=== PATIENT | female | born 1950 | race Caucasian/White ===

== ENCOUNTER 2020-01-03 16:56 | Emergency (ER) | payer MEDICARE, BC, OTHER ==
--- NOTE | 2020-01-03 17:17 | EDM.PDOC ---
ED HPI GENERAL MEDICAL PROBLEM - General Chief Complaint: Gastrointestinal Problem Stated Complaint: nausea vomiting incoherent Time Seen by Provider: 01/03/20 17:02 Source of Information: Reports: Patient History Limitations: Reports: No Limitations - History of Present Illness INITIAL COMMENTS - FREE TEXT/NARRATIVE: 69F presents after episodes of dizziness and 1x N/V lasting roughly 45min. Patient notes that she was in normal state of health until she received some distressing new regarding the health of her sister in [place]. She was told her sister would likely tonight. Immediately after hearing this she became dizzy and felt like she was about to pass out. She felt nauseated and threw up. Symptoms are mostly resolved and lasted about 45-mn. Never had CP or SOB. - Related Data Allergies Allergy/AdvReac Type Severity Reaction Status Date / Time influenza virus vaccine, Allergy Anaphylactic Verified 01/03/20 17:06 specific Shock [influenza virus vacc,specific] Penicillins Allergy Hives Verified 01/03/20 17:06 Home Meds: Home Meds Aspirin 325 mg PO QAM 07/11/14 [History] Calcium Carb/Vit D3/Minerals [Calcium 600+D Plus Min] 1 each PO QAM 07/11/14 [History] Enalapril [Vasotec] 10 mg PO BID 07/11/14 [History] Glimepiride 4 mg PO BID 07/11/14 [History] Rosuvastatin [Crestor] 10 mg PO BEDTIME 07/11/14 [History] metFORMIN [Glucophage] 500 mg PO TID 07/11/14 [History] Chlorthalidone 25 mg PO DAILY 01/03/20 [History] Ketorolac [Toradol] 10 mg PO QID PRN 01/03/20 [History] Saxagliptin HCl [Onglyza] 5 mg PO DAILY 01/03/20 [History] carvediloL [Carvedilol] 25 mg PO BID 01/03/20 [History] ED ROS GENERAL - Review of Systems Review Of Systems: Comprehensive ROS is negative, except as noted in HPI. ED EXAM, GI/ABD - Physical Exam Exam: See Below Exam Limited By: No Limitations General Appearance: Alert, WD/WN, No Apparent Distress Head: Atraumatic, Normocephalic Respiratory/Chest: No Respiratory Distress, Lungs Clear, Normal Breath Sounds, No Accessory Muscle Use Cardiovascular: Normal Peripheral Pulses, Regular Rate, Rhythm GI/Abdominal Exam: Soft, Non-Tender Extremities: Normal Inspection Neurological: Alert, Oriented Psychiatric: Normal Affect, Normal Mood Skin Exam: Warm, Dry EKG INTERPRETATION EKG Date: 01/03/20 Time: 17:46 Rhythm: A-Fib Rate (Beats/Min): 74 [place]: Normal P-Wave: Absent QRS: Normal ST-T: Normal QT: Normal Comparison: NA - No Prior EKG Course - Vital Signs Last Recorded V/S: Last Vital Signs Temp 97.2 F 01/03/20 17:12 Pulse 72 01/03/20 17:12 Resp 17 01/03/20 17:12 BP 136/68 01/03/20 17:12 Pulse Ox 94 L 01/03/20 17:12 - Orders/Labs/Meds Orders: Active Orders 24 hr Category Date Time Status EKG Documentation Completion [RC] STAT Care 01/03/20 17:17 Active Labs: Laboratory Tests 01/03/20 01/03/20 Range/Units 17:38 17:38 WBC 7.07 (4.0-11.0) K/uL RBC 3.98 L (4.30-5.90) M/uL Hgb 11.1 L (12.0-16.0) g/dL Hct 35.1 L (36.0-46.0) % MCV 88.2 (80.0-98.0) fL MCH 27.9 (27.0-32.0) pg MCHC 31.6 (31.0-37.0) g/dL RDW Std Deviation 47.1 (28.0-62.0) fl RDW Coeff of Annita 15 (11.0-15.0) % Plt Count 197 (150-400) K/uL MPV 11.80 (7.40-12.00) fL Neut % (Auto) 67.3 (48.0-80.0) % Lymph % (Auto) 20.9 (16.0-40.0) % [place] % (Auto) 7.1 (0.0-15.0) % Eos % (Auto) 4.4 (0.0-7.0) % Baso % (Auto) 0.3 (0.0-1.5) % Neut # (Auto) 4.8 (1.4-5.7) K/uL Lymph # (Auto) 1.5 (0.6-2.4) K/uL [place] # (Auto) 0.5 (0.0-0.8) K/uL Eos # (Auto) 0.3 (0.0-0.7) K/uL Baso # (Auto) 0.0 (0.0-0.1) K/uL Nucleated RBC % 0.0 /100WBC Nucleated RBCs # 0 K/uL Sodium 136 (136-145) mmol/L Potassium 4.6 (3.5-5.1) mmol/L Chloride 103 (98-107) mmol/L Carbon Dioxide 24.6 (21.0-32.0) mmol/L BUN 26 H (7.0-18.0) mg/dL Creatinine 1.1 H (0.6-1.0) mg/dL Est Cr Clr Drug Dosing 35.16 mL/min Estimated GFR (MDRD) 49.4 ml/min Glucose 228 H (74-106) mg/dL Calcium 8.6 (8.5-10.1) mg/dL Total Bilirubin 0.8 (0.2-1.0) mg/dL AST 14 L (15-37) IU/L ALT 21 (14-63) IU/L Alkaline Phosphatase 52 (46-116) U/L Troponin I < 0.050 (0.000-0.056) ng/mL Total Protein 7.3 (6.4-8.2) g/dL Albumin 3.7 (3.4-5.0) g/dL Globulin 3.6 (2.6-4.0) g/dL Albumin/Globulin Ratio 1.0 (0.9-1.6) - Re-Assessments/Exams Free Text/Narrative Re-Assessment/Exam: 01/03/20 17:26 Will get basic labs and EKG. Likely stress reaction. If negative will d/c so patient can go see her sister. 01/03/20 18:21 Labs unremarkable. Will d/c with PMD f/u Departure - Departure Time of Disposition: 18:22 Disposition: Home, Self-Care 01 Condition: Good Clinical Impression: Stress reaction - Discharge Information Instructions: Stress Referrals: Theresa Cook MD [Primary Care Provider] - Forms: ED Department Discharge Additional Instructions: The following information is given to patients seen in the emergency department who are being discharged to home. This information is to outline your options for follow-up care. We provide all patients seen in our emergency department with a follow-up referral. The need for follow-up, as well as the timing and circumstances, are variable depending upon the specifics of your emergency department visit. If you don't have a primary care physician on staff, we will provide you with a referral. We always advise you to contact your personal physician following an emergency department visit to inform them of the circumstance of the visit and for follow-up with them and/or the need for any referrals to a consulting specialist. The emergency department will also refer you to a specialist when appropriate. This referral assures that you have the opportunity for follow-up care with a specialist. All of these measure are taken in an effort to provide you with optimal care, which includes your follow-up. Under all circumstances we always encourage you to contact your private physician who remains a resource for coordinating your care. When calling for follow-up care, please make the office aware that this follow-up is from your recent emergency room visit. If for any reason you are refused follow-up, please contact the [facility] at and asked to speak to the emergency department charge nurse. Sepsis Event Note (ED) - Evaluation Sepsis Screening Result: No Definite Risk - Focused Exam Vital Signs: Vital Signs Temp Pulse Resp BP Pulse Ox 01/03/20 17:12 97.2 F 72 17 136/68 94 L - My Orders Last 24 Hours: My Active Orders 01/03/20 17:17 EKG Documentation Completion [RC] STAT - Assessment/Plan Last 24 Hours: My Active Orders 01/03/20 17:17 EKG Documentation Completion [RC] STAT
[2020-01-03 18:10] LABS: BLOOD UREA NITROGEN,BUN 26 mg/dL (7.0-18.0); CARBON DIOXIDE,CO2 24.6 mmol/L (21.0-32.0); CHLORIDE,CL 103 mmol/L (98-107); GLUCOSE RANDOM 228 mg/dL (74-106); POTASSIUM,K 4.6 mmol/L (3.5-5.1); SODIUM,NA 136 mmol/L (136-145)
[2020-01-03] MEDS ORDERED: Acetaminophen 500 MG Tab PO ONE (18:30)
[2020-01-03 18:47] VITALS: BP 145/76; PULSE 67
== END 2020-01-03 18:35 | disposition home or self-care (01) ==
LOC: MW.ED 16:56
DX: F43.9 Reaction to severe stress, unspecified (principal); Z88.7 Allergy status to serum and vaccine; Z79.82 Long term (current) use of aspirin; Z79.84 Long term (current) use of oral hypoglycemic drugs; Z79.899 Other long term (current) drug therapy; Z88.0 Allergy status to penicillin
CPT/HCPCS: 36415; 80053; 84484; 85025; 93005; 99284; A9270; 93010; 99282

== ENCOUNTER 2021-10-26 07:01 | Day surgery (SDC) | payer MEDICARE, BC, OTHER ==
[~2021-10-26 07:01] MED LIST: Lactated Ringers 1,000 ML IV SCH
[2021-10-26] MEDS ORDERED: Lidocaine 2% 5 ML SDV ONE (08:06)
[2021-10-26] MEDS ORDERED: fentaNYL 100 MCG/2 ML SDV ONE (08:07)
[2021-10-26] MEDS ORDERED: Propofol 200 MG/20 ML SDV ONE (08:07)
[2021-10-26 10:09] VITALS: BP 159/77; PULSE 73
== END 2021-10-26 10:00 | disposition home or self-care (01) ==
LOC: MW.SDS 07:01
PROVIDERS: ATTEND Surgery
DX: K62.1 Rectal polyp (principal); K57.30 Diverticulosis of large intestine without perforation or abscess without bleeding; I10 Essential (primary) hypertension; E11.51 Type 2 diabetes mellitus with diabetic peripheral angiopathy without gangrene; E78.00 Pure hypercholesterolemia, unspecified; F41.9 Anxiety disorder, unspecified; E03.9 Hypothyroidism, unspecified; F32.A Depression, unspecified; Z88.1 Allergy status to other antibiotic agents; Z88.0 Allergy status to penicillin; Z79.84 Long term (current) use of oral hypoglycemic drugs; Z79.890 Hormone replacement therapy; Z79.899 Other long term (current) drug therapy; Z95.820 Peripheral vascular angioplasty status with implants and grafts
CPT/HCPCS: 45385; 82947; J2704; J3010; J7120; 00812; 88305; 99100

== ENCOUNTER 2024-12-06 23:24 | Emergency (ER) | payer MEDICARE, OTHER ==
[2024-12-06] MEDS: Ondansetron 4 MG/2 ML SDV IVPUSH PRN (23:36)
[2024-12-06] MEDS: Sodium Chloride 0.9% 10 ML Syringe FLUSH PRN (23:36)
[2024-12-06] MEDS: Sodium Chloride 0.9% 2.5 ML Syringe FLUSH PRN (23:37)
[2024-12-06] MEDS: Pantoprazole 80 MG in Sodium Chloride 0.9% 10 ML IVPUSH ONE (23:46)
[2024-12-06 23:47] LABS: BASOPHILS ABSOLUTE AUTO 0.02 K/uL (0.00-0.20); BASOPHILS PERCENT AUTO 0.2 % (0.0-1.0); EOSINOPHILS ABSOLUTE AUTO 0.04 K/uL (0.00-0.45); EOSINOPHILS PERCENT AUTO 0.4 % (0.0-6.0); IMMATURE GRAN ABSOLUTE AUTO 0.03 K/uL (0.00-0.05); IMMATURE GRAN PERCENT AUTO 0.3 % (0.0-0.4); LYMPHOCYTES ABSOLUTE AUTO 1.10 K/uL (1.00-4.80); LYMPHOCYTES PERCENT AUTO 10.8 % (24.0-44.0); MEAN PLATELET VOLUME 11.7 fL (9.4-12.3); MONOCYTES ABSOLUTE AUTO 0.24 K/uL (0.00-0.80); MONOCYTES PERCENT AUTO 2.4 % (0.0-8.0); NEUTROPHILS ABSOLUTE AUTO 8.75 K/uL (1.80-7.70); NEUTROPHILS PERCENT AUTO 85.9 % (41.0-71.0); NRBC ABSOLUTE 0.00 K/uL (0.00-0.02); NRBC PERCENT 0.0 /100WBC (0.0-0.2); PLATELET COUNT,PLT 159 K/uL (150-400); RED BLOOD CELL COUNT 3.78 M/uL (4.10-5.30); WHITE BLOOD CELL COUNT,WBC 10.18 K/uL (3.9-11.3)
[2024-12-07] MEDS: diphenhydrAMINE 50 MG/ML SDV IVPUSH ONE (00:11)
[2024-12-07 00:13] LABS: A/G RATIO 0.9 (0.9-1.6); ALANINE AMINOTRANSFERASE,ALT 26.0 IU/L (14-63); ASPARTATE AMNIOTRANSFERASE,AST 20.0 IU/L (15-37); BILIRUBIN TOTAL 0.7 mg/dL (0.2-1.0); BLOOD UREA NITROGEN,BUN 111.0 mg/dL (7.0-18.0); CARBON DIOXIDE,CO2 14.7 mmol/L (21.0-32.0); CHLORIDE,CL 99.0 mmol/L (98-107); CREATININE 7.0 mg/dL (0.6-1.0); EST CRCL DRUG DOSING (CG) 5.92 mL/min; GLUCOSE RANDOM 104.0 mg/dL (74-106); PROTEIN TOTAL,TP 6.7 g/dL (6.4-8.2); SODIUM,NA 137.0 mmol/L (136-145)
[2024-12-07 00:16] LABS: ESTIMATED GFR 6.0 mL/min (>60); POTASSIUM,K 7.4 mmol/L (3.5-5.1)
[2024-12-07] MEDS ORDERED: Sodium Chloride 0.9% 2.5 ML Syringe FLUSH PRN (00:27)
[2024-12-07] MEDS ORDERED: 50% Dextrose in Water 50 ML Syringe IVPUSH PRN (00:27)
[2024-12-07] MEDS ORDERED: Sodium Chloride 0.9% 10 ML Syringe FLUSH PRN (00:27)
[2024-12-07] MEDS: Furosemide 40 MG/4 ML VIAL IVPUSH ONE (00:38)
[2024-12-07] MEDS: Albuterol 0.083% 2.5 MG/3 ML Neb Soln NEB ONE (00:40)
[2024-12-07] MEDS: Insulin Regular, Human 100 Units/ML 10 ML Vial IVPUSH ONE (00:48)
[2024-12-07] MEDS: 50% Dextrose in Water 50 ML Syringe IV ONE (00:51)
[2024-12-07 01:33] LABS: APPEARANCE,URINE SLT CLOUDY; GLUCOSE,URINE NEGATIVE (NEGATIVE); OCCULT BLOOD,URINE MODERATE (NEGATIVE)
[2024-12-07 01:39] VITALS: BP 155/73; PULSE 87
[2024-12-07 01:48] LABS: EPITHELIAL CELLS,URINE MODERATE (NONE-FEW)
== END 2024-12-07 02:50 ==
LOC: MW.ED 23:24
DX: N17.9 Acute kidney failure, unspecified (principal); E87.5 Hyperkalemia; I10 Essential (primary) hypertension; E78.00 Pure hypercholesterolemia, unspecified; E11.9 Type 2 diabetes mellitus without complications; E03.9 Hypothyroidism, unspecified; Z79.890 Hormone replacement therapy; Z88.0 Allergy status to penicillin; Z79.899 Other long term (current) drug therapy; Z79.84 Long term (current) use of oral hypoglycemic drugs; Z91.041 Radiographic dye allergy status
CPT/HCPCS: 36415; 74176; 80053; 81001; 82947; 83735; 84132; 85025; 87086; 93005; 96361; 96374; 96375; 99285; A9270; J1200; J1938; J2405; J2470; J2765; J7030; J1815-GY

== ENCOUNTER 2025-01-28 16:09 | Emergency (ER) | payer MEDICARE, OTHER ==
[2025-01-28 17:06] LABS: BASOPHILS ABSOLUTE AUTO 0.06 K/uL (0.00-0.20); BASOPHILS PERCENT AUTO 0.9 % (0.0-1.0); EOSINOPHILS ABSOLUTE AUTO 0.26 K/uL (0.00-0.45); EOSINOPHILS PERCENT AUTO 3.7 % (0.0-6.0); IMMATURE GRAN ABSOLUTE AUTO 0.01 K/uL (0.00-0.05); IMMATURE GRAN PERCENT AUTO 0.1 % (0.0-0.4); LYMPHOCYTES ABSOLUTE AUTO 1.41 K/uL (1.00-4.80); LYMPHOCYTES PERCENT AUTO 20.2 % (24.0-44.0); MEAN PLATELET VOLUME 11.4 fL (9.4-12.3); MONOCYTES ABSOLUTE AUTO 0.79 K/uL (0.00-0.80); MONOCYTES PERCENT AUTO 11.3 % (0.0-8.0); NEUTROPHILS ABSOLUTE AUTO 4.45 K/uL (1.80-7.70); NEUTROPHILS PERCENT AUTO 63.8 % (41.0-71.0); NRBC ABSOLUTE 0.00 K/uL (0.00-0.02); NRBC PERCENT 0.0 /100WBC (0.0-0.2); PLATELET COUNT,PLT 215 K/uL (150-400); RED BLOOD CELL COUNT 3.58 M/uL (4.10-5.30); WHITE BLOOD CELL COUNT,WBC 6.98 K/uL (3.9-11.3)
[2025-01-28 17:20] LABS: INR 1.1 (0.86-1.11); PTT,PARTIAL THROMBOPLSTIN TIME 27.6 SEC (23.9-30.7)
[2025-01-28] MEDS: Iopamidol 755 Mg/ML 100 ML Bottle IVPUSH ONE (17:21)
[2025-01-28 17:30] LABS: A/G RATIO 0.9 (0.9-1.6); ALANINE AMINOTRANSFERASE,ALT 22.0 IU/L (14-63); ASPARTATE AMNIOTRANSFERASE,AST 33.0 IU/L (15-37); BILIRUBIN TOTAL 0.6 mg/dL (0.2-1.0); BLOOD UREA NITROGEN,BUN 38.0 mg/dL (7.0-18.0); CARBON DIOXIDE,CO2 24.5 mmol/L (21.0-32.0); CHLORIDE,CL 102.0 mmol/L (98-107); CREATININE 1.2 mg/dL (0.6-1.0); EST CRCL DRUG DOSING (CG) 29.99 mL/min; GLUCOSE RANDOM 156.0 mg/dL (74-106); POTASSIUM,K 4.8 mmol/L (3.5-5.1); PROTEIN TOTAL,TP 8.0 g/dL (6.4-8.2); SODIUM,NA 137.0 mmol/L (136-145)
[2025-01-28 17:31] LABS: ESTIMATED GFR 48.0 mL/min (>60)
[2025-01-28] MEDS: Heparin Sodium/0.45% NaCl 25,000 UNITS/250 ML BAG IV SCH (20:08)
[2025-01-28] MEDS: Heparin Sodium 5,000 Units/ML Vial IVPUSH ONE (20:08)
[2025-01-28] MEDS ORDERED: Naloxone 0.4 MG/ML SDV IVPUSH PRN (23:29)
[2025-01-29] MEDS: Heparin Sodium 5,000 Units/ML Vial IVPUSH STA (04:11)
[2025-01-29 12:00] VITALS: BP 159/72; PULSE 80
== END 2025-01-29 12:31 ==
LOC: MW.ED 16:09
DX: I70.202 Unspecified atherosclerosis of native arteries of extremities, left leg (principal); E86.0 Dehydration; I10 Essential (primary) hypertension; E78.00 Pure hypercholesterolemia, unspecified; E11.9 Type 2 diabetes mellitus without complications; E03.9 Hypothyroidism, unspecified; Z88.0 Allergy status to penicillin; Z88.1 Allergy status to other antibiotic agents; Z88.7 Allergy status to serum and vaccine; Z91.041 Radiographic dye allergy status; Z79.01 Long term (current) use of anticoagulants; Z79.84 Long term (current) use of oral hypoglycemic drugs; Z79.890 Hormone replacement therapy; Z79.899 Other long term (current) drug therapy; Z75.3 Unavailability and inaccessibility of health-care facilities
CPT/HCPCS: 36415; 75635; 80053; 82947; 83735; 84484; 85025; 85610; 85730; 93005; 96361; 96365; 96366; 96375; 96376; 99285; A9270; J1644; J2270; J7030; Q9967; 93010